=== PATIENT | female | born 1965 | race Caucasian/White ===

== ENCOUNTER → 2017-04-21 | Outpatient (CLI) | payer BC ==
[2017-04-21 16:35] LABS: BLOOD UREA NITROGEN 9 mg/dL (7-20); CREATININE RESULT 0.66 mg/dL (0.52-1.25)
== END ==
LOC: OD 15:40
PROVIDERS: ATTEND Specialist
DX: R51 Headache (principal)
CPT/HCPCS: 36415; 82565; 84520